=== PATIENT | male | born 1985 | race Caucasian/White ===

== ENCOUNTER 2017-02-07 16:49 | Emergency (ER) | payer MEDICAID ==
[~2017-02-07] VITALS: Ht 185.4 cm; Wt 111.3 kg
[2017-02-07] MEDS ORDERED: IPRATROPIUM BROMIDE 0.5 MG/2.5 ML NEB SOLUTION NEB ONE ×2 (18:30→19:00)
[2017-02-07] MEDS ORDERED: 0.9% SODIUM CHLORIDE 5 ML NEB SOLUTION NEB ONE (18:55)
[2017-02-07] MEDS ORDERED: ALBUTEROL SULFATE 5 MG/ML 20 ML NEB SOLN [BULK] NEB ONE (19:00)
[2017-02-07] MEDS ORDERED: IBUPROFEN 800 MG TABLET PO ONE (20:00)
[2017-02-07 20:15] VITALS: BP 127/72
== END 2017-02-07 20:18 | disposition home or self-care (01) ==
LOC: EMS 16:52
DX: J98.01 Acute bronchospasm (principal); J06.9 Acute upper respiratory infection, unspecified; H66.92 Otitis media, unspecified, left ear; M79.1 Myalgia; F17.210 Nicotine dependence, cigarettes, uncomplicated
CPT/HCPCS: 94644; 99285; J7611